=== PATIENT | female | born 1990 | race Caucasian/White ===

== ENCOUNTER 2022-05-23 02:20 | Inpatient (IN) | payer OTHER ==
[2022-05-23] MEDS ORDERED: ELECTROLYTE-148 SOLN 1,000 ML IV SCH (03:35)
[2022-05-23] MEDS ORDERED: AMPICILLIN SODIUM 2 GM VIAL ONE (03:42)
[2022-05-23] MEDS ORDERED: AMPICILLIN - 2 GM in SODIUM CHLORIDE 100 ML IVPB ONE (03:55)
[2022-05-23 04:12] LABS: BASO % 0.1 % (0-2.0); EOS % 0.8 % (0-4.5); HEMATOCRIT 34.5 % (32.4-45.2); HEMOGLOBIN 11.7 GM/dL (10.7-15.3); LYMPH % 17.4 % (8-40); MCH 28.8 pg (25.7-33.7); MCHC 33.9 g/dl (32.0-36.0); MEAN CELL VOLUME 84.8 fl (80-96); MEAN PLT VOLUME 9.9 fl (7.5-11.1); MONO % 10.2 % (3.8-10.2); NEUT % 71.5 % (42.8-82.8); PLATELET COUNT 161 10^3/uL (134-434); RBC 4.07 M/mm3 (3.60-5.2); RDW 14.9 % (11.6-15.6); WHITE BLOOD COUNT 8.6 K/mm3 (4.0-10.0)
[2022-05-23 04:18] LABS: INR 1.03 (0.83-1.09); PROTHROMBIN TIME (PATIENT) 11.9 SEC (9.7-13.0)
[2022-05-23 04:20] LABS: ACTIVATED PTT 28.4 SECONDS (25.2-36.5)
[2022-05-23 04:31] VITALS: BMI 34.8
[2022-05-23 04:31] LABS: CALCIUM 9.1 mg/dL (8.5-10.1)
[2022-05-23 04:33] LABS: BLOOD UREA NITROGEN 7.2 mg/dL (7-18)
[2022-05-23 04:36] LABS: CREATININE 0.5 mg/dL (0.55-1.3)
[2022-05-23] MEDS: AMPICILLIN - 1 GM in SODIUM CHLORIDE 100 ML IVPB SCH ×2 (08:00→13:19)
[2022-05-23] MEDS ORDERED: AMPICILLIN SODIUM 1 GM VIAL ONE (08:00)
[2022-05-23] MEDS ORDERED: CITRIC ACID/SODIUM CITRATE 30 ML UNIT-DOSE CUP PO ONE (09:39)
[2022-05-23] MEDS ORDERED: OXYTOCIN 30 UNITS in 0.9% NS 30 UNIT/500 ML INFUS.BAG IVPB ONE (09:58)
[2022-05-23] MEDS ORDERED: ceFAZolin SODIUM 1 GM VIAL ONE (09:59)
[2022-05-23] MEDS ORDERED: PHENYLEPHRINE HCL 10 MG/1 ML SINGLE DOSE VIAL ONE (09:59)
[2022-05-23] MEDS ORDERED: ONDANSETRON 4 MG/2 ML VIAL ONE ×2 (09:59→15:16)
[2022-05-23] MEDS ORDERED: METOCLOPRAMIDE HCL INJECTION 10 MG/2 ML VIAL ONE (09:59)
[2022-05-23] MEDS ORDERED: morphine SULFATE (PF) 1 MG/2 ML SYRINGE ONE (10:00)
[2022-05-23] MEDS ORDERED: METHYLERGONOVINE MALEATE 0.2 MG/1 ML AMP IM PRN (11:29)
[2022-05-23 12:03] LABS: CORD PCO2 79.7 mmHg (30-78); CORD pH 7.097 (7.14-7.44)
[2022-05-23] MEDS ORDERED: OXYTOCIN 20 UNITS in 0.9% NS 20 UNIT/1,000 ML INFUS.BAG IV ONE (12:03)
[2022-05-23 12:04] LABS: CORD HCO3 21.8 mmHg (20-29); CORD PCO2 71.1 mmHg (30-78); CORD pH 7.105 (7.14-7.44)
[2022-05-23] MEDS: OXYTOCIN 20 UNITS in 0.9% NS 20 UNIT/1,000 ML INFUS.BAG IV SCH (13:19)
[2022-05-23] MEDS: IBUPROFEN 600 MG TABLET (FP) PO PRN (14:08)
[2022-05-23] MEDS: SIMETHICONE 80 MG TAB.CHEW (FP) PO PRN (14:08)
[2022-05-23] MEDS ORDERED: ONDANSETRON 4 MG/2 ML VIAL IVPB PRN (16:56)
[2022-05-23] MEDS: IBUPROFEN 800 MG/8 ML IJ IVPB PRN (17:38)
[2022-05-24] MEDS: IBUPROFEN 800 MG/8 ML IJ IVPB PRN (02:36)
[2022-05-24] MEDS: OXYTOCIN 20 UNITS in 0.9% NS 20 UNIT/1,000 ML INFUS.BAG IV SCH ×2 (02:36→22:57)
[2022-05-24] MEDS: IBUPROFEN 600 MG TABLET (FP) PO PRN ×3 (06:42→16:15)
[2022-05-24] MEDS: ACETAMINOPHEN 325 MG TABLET (FP) PO PRN (08:03)
[2022-05-24] MEDS: SIMETHICONE 80 MG TAB.CHEW (FP) PO PRN ×2 (08:03→20:12)
[2022-05-24 09:41] LABS: BASO % 0.3 % (0-2.0); EOS % 0.6 % (0-4.5); HEMATOCRIT 31.5 % (32.4-45.2); HEMOGLOBIN 10.3 GM/dL (10.7-15.3); LYMPH % 9.4 % (8-40); MCHC 32.6 g/dl (32.0-36.0); MEAN CELL VOLUME 85.6 fl (80-96); MEAN PLT VOLUME 9.4 fl (7.5-11.1); MONO % 5.7 % (3.8-10.2); PLATELET COUNT 166 10^3/uL (134-434); RBC 3.67 M/mm3 (3.60-5.2); RDW 14.9 % (11.6-15.6); WHITE BLOOD COUNT 11.8 K/mm3 (4.0-10.0)
[2022-05-24] MEDS ORDERED: FLU VACC QS2022-23(6MOS UP)/PF 60 MCG/0.5 ML SYRINGE IM ONE (10:00)
[2022-05-24] MEDS: ENOXAPARIN NA (PORCINE) 40 MG/0.4 ML DISP.SYRIN SQ SCH (10:48)
[2022-05-24] MEDS: oxyCODONE HCL 5 MG TABLET PO PRN ×2 (14:14→20:13)
[2022-05-24] MEDS: BISACODYL 10 MG SUPP.RECT RC PRN (18:18)
[2022-05-25] MEDS: oxyCODONE HCL 5 MG TABLET PO PRN ×3 (04:07→22:54)
[2022-05-25] MEDS: SIMETHICONE 80 MG TAB.CHEW (FP) PO PRN ×3 (04:08→22:55)
[2022-05-25] MEDS ORDERED: IBUPROFEN 600 MG TABLET (FP) PO ONE (05:20)
[2022-05-25] MEDS ORDERED: ACETAMINOPHEN 325 MG TABLET (FP) PO ONE (05:20)
[2022-05-25] MEDS: IBUPROFEN 600 MG TABLET (FP) PO PRN ×3 (08:41→21:29)
[2022-05-25] MEDS: ACETAMINOPHEN 325 MG TABLET (FP) PO PRN (09:52)
[2022-05-25] MEDS: ENOXAPARIN NA (PORCINE) 40 MG/0.4 ML DISP.SYRIN SQ SCH (10:05)
[2022-05-25] MEDS: BISACODYL 10 MG SUPP.RECT RC PRN (12:46)
[2022-05-25 21:28] VITALS: RESP 18
[2022-05-26] MEDS: SIMETHICONE 80 MG TAB.CHEW (FP) PO PRN (04:34)
[2022-05-26] MEDS: oxyCODONE HCL 5 MG TABLET PO PRN (04:34)
[2022-05-26] MEDS: IBUPROFEN 600 MG TABLET (FP) PO PRN ×2 (07:17→11:41)
[2022-05-26 09:07] LABS: BASO % 0.2 % (0-2.0); EOS % 1.5 % (0-4.5); HEMATOCRIT 28.6 % (32.4-45.2); HEMOGLOBIN 9.7 GM/dL (10.7-15.3); LYMPH % 15.1 % (8-40); MCH 29.1 pg (25.7-33.7); MCHC 33.8 g/dl (32.0-36.0); MEAN CELL VOLUME 86.1 fl (80-96); MEAN PLT VOLUME 8.5 fl (7.5-11.1); MONO % 8.4 % (3.8-10.2); NEUT % 74.8 % (42.8-82.8); PLATELET COUNT 179 10^3/uL (134-434); RBC 3.32 M/mm3 (3.60-5.2); WHITE BLOOD COUNT 8.5 K/mm3 (4.0-10.0)
[2022-05-26] MEDS: ENOXAPARIN NA (PORCINE) 40 MG/0.4 ML DISP.SYRIN SQ SCH (09:15)
[2022-05-26 11:23] VITALS: BP 113/71; PULSE 98; TEMP 98.2
== END 2022-05-26 14:20 | disposition home or self-care (01) | DRG 788 ==
LOC: JLDR 02:20 → J3W 12:50
PROVIDERS: ADMIT Obstetrics & Gynecology; ATTEND Obstetrics & Gynecology
PROC: 10D00Z1 Extraction of Products of Conception, Low, Open Approach (ICD-10-PCS; principal; 2022-05-23)
DX: O76 Abnormality in fetal heart rate and rhythm complicating labor and delivery (principal); O99.214 Obesity complicating childbirth; Z3A.39 39 weeks gestation of pregnancy; Z37.0 Single live birth
CPT/HCPCS: 36415; 36600; 80048; 82803; 85025; 85610; 85730; 86780; 86850; 86900; 86901; 88307-TC; C9803-CS; G0008; Q2036; U0003; U0005